=== PATIENT | female | born 1990 | race American Indian/Alaskan Native ===

== ENCOUNTER 2017-10-26 14:13 | Emergency (ER) | payer MEDICAID, OTHER ==
[2017-10-26 14:18] VITALS: BP 113/72
--- NOTE | 2017-10-26 16:20 | Emergency Department Report ---
Blank Doc - Documentation Documentation: Patient is a 27-year-old Female who is presenting with lower abdominal discomfort for the past several days. Patient took a test at home and it was positive. Patient is denying any vaginal bleeding but does have some urinary frequency and vaginal discharge at this time. Patient will receive quant, urinalysis and US
[2017-10-26 16:21] LABS: Bacteria,Urine 1+ /HPF (Negative); Bilirubin,Urine NEG (Negative); Blood,Urine NEG (Negative); Color,Urine Yellow (Yellow); HCG Qualitative,Urine Positive (Negative); Mucus,Urine 1+ /HPF; Protein,Urine <15 mg/dL mg/dL (Negative); Urobilinogen,Urine < 2.0 mg/dL (<2.0)
--- NOTE | 2017-10-26 17:02 | Emergency Department Report ---
ED Abdominal Pain HPI - General Chief Complaint: Abdominal Pain Stated Complaint: /CRAMPING Time Seen by Provider: 10/26/17 15:46 Source: patient Mode of arrival: Ambulatory Limitations: No Limitations - History of Present Illness Initial Comments: Patient is a 27-year-old Female who is presenting with lower abdominal discomfort for the past several days. Patient took a test at home and it was positive. Patient is denying any vaginal bleeding but does have some urinary frequency and vaginal discharge at this time. Patient will receive quant, urinalysis and US - Related Data Previous Rx's Medication Instructions Recorded Last Taken Type Acetaminophen/Codeine [Tylenol #3] 1 tab PO Q6H PRN #20 tab 09/20/15 Unknown Rx Allergies Allergy/AdvReac Type Severity Reaction Status Date / Time No Known Allergies Allergy Unverified 09/19/15 20:58 ED Review of Systems ROS: Stated complaint: /CRAMPING Other details as noted in HPI ED Past Medical Hx - Past Medical History Previous Medical History?: Yes Additional medical history: Miscarriage - Surgical History Past Surgical History?: No - Social History Smoking Status: Never Smoker Substance Use Type: Alcohol, Non Opiate Pain - Medications Home Medications: Home Medications Medication Instructions Recorded Confirmed Last Taken Type Acetaminophen/Codeine [Tylenol #3] 1 tab PO Q6H PRN #20 tab 09/20/15 Unknown Rx ED Physical Exam - General Limitations: No Limitations ED Course Vital Signs 10/26/17 14:14 Temperature 98.7 F Pulse Rate 86 Respiratory 18 Rate Blood Pressure 113/72 O2 Sat by Pulse 98 Oximetry ED Medical Decision Making - Lab Data Result diagrams: 10/26/17 17:16 Critical care attestation.: If time is entered above; I have spent that time in minutes in the direct care of this critically ill patient, excluding procedure time. ED Disposition Condition: Stable Instructions: Abdominal Pain (ED) Referrals: PRIMARY CARE, [Primary Care Provider] - 3-5 Days
[2017-10-26 17:28] LABS: Basophils % (Auto) 0.4 % (0.0-1.8); Eosinophils # (Auto) 0.1 K/mm3 (0.0-0.4); Eosinophils % (Auto) 0.8 % (0.0-4.3); Hematocrit 39.4 % (30.3-42.9); Lymphocytes # (Auto) 2.6 K/mm3 (1.2-5.4); Lymphocytes % (Auto) 29.5 % (13.4-35.0); Mean Corpuscular HGB Conc 33 % (30-34); Mean Corpuscular Hemoglobin 29 pg (28-32); Mean Corpuscular Volume 88 fl (79-97); Monocytes # (Auto) 0.6 K/mm3 (0.0-0.8); Monocytes % (Auto) 6.6 % (0.0-7.3); Platelet Count 275 K/mm3 (140-440); Red Blood Count 4.45 M/mm3 (3.65-5.03); Red Cell Distribution Width 14.9 % (13.2-15.2)
--- NOTE | 2017-10-26 18:59 | Emergency Department Report ---
Chief Complaint: Abdominal Pain Stated Complaint: /CRAMPING Time Seen by Provider: 10/26/17 15:46 - HPI History of Present Illness: Patient is a 27-year-old Female who is presenting with lower abdominal discomfort for the past several days. Patient took a test at home and it was positive. Patient is denying any vaginal bleeding but does have some urinary frequency , burning or urgency but she reports that she is having vaginal discharge. Patient said that she has been 41 child and combination of and miscarriage 2. She doesn't know how far along she is better last menstrual cycle was 08/28/2017. She said the vaginal discharge does not have older. Pain is 4-10 located the pelvic area cramping on and off no medication use .patient reports that she has an [facility] visit next week - ROS Review of Systems: All systems are negative unless stated in HPI above - Exam Vital Signs: Vital Signs 10/26/17 14:14 Temperature 98.7 F Pulse Rate 86 Respiratory 18 Rate Blood Pressure 113/72 O2 Sat by Pulse 98 Oximetry Physical Exam: This is a 27-year-old female well-nourished with follow-up in no acute distress. Abdomen: Tenderness to pelvic area without any guarding or rebound tenderness. No CVA tenderness MSE screening note: Focused history and physical exam performed. Due to findings the following was ordered: ED Medical Decision Making - Lab Data Result diagrams: 10/26/17 17:16 Lab Results 10/26/17 10/26/17 10/26/17 Range/Units 15:55 16:33 17:16 WBC 8.8 (4.5-11.0) K/mm3 RBC 4.45 (3.65-5.03) M/mm3 Hgb 13.0 (10.1-14.3) gm/dl Hct 39.4 (30.3-42.9) % MCV 88 (79-97) fl MCH 29 (28-32) pg MCHC 33 (30-34) % RDW 14.9 (13.2-15.2) % Plt Count 275 (140-440) K/mm3 Lymph % (Auto) 29.5 (13.4-35.0) % [place] % (Auto) 6.6 (0.0-7.3) % Eos % (Auto) 0.8 (0.0-4.3) % Baso % (Auto) 0.4 (0.0-1.8) % Lymph # 2.6 (1.2-5.4) K/mm3 [place] # 0.6 (0.0-0.8) K/mm3 Eos # 0.1 (0.0-0.4) K/mm3 Baso # 0.0 (0.0-0.1) K/mm3 Seg Neutrophils % 62.7 (40.0-70.0) % Seg Neutrophils # 5.5 (1.8-7.7) K/mm3 HCG, Quant 900937 H (0-4) mIU/mL Urine Color Yellow (Yellow) Urine Turbidity Clear (Clear) Urine pH 5.0 (5.0-7.0) Ur Specific Allen 1.021 (1.003-1.030) Urine Protein <15 mg/dl (Negative) mg/dL Urine Glucose (UA) Neg (Negative) mg/dL Urine Ketones Neg (Negative) mg/dL Urine Blood Neg (Negative) Urine Nitrite Neg (Negative) Ur Reducing Substances Not Reportable Urine Bilirubin Neg (Negative) Urine Ictotest Not Reportable Urine Urobilinogen < 2.0 (<2.0) mg/dL Ur Leukocyte Esterase Lg (Negative) Urine WBC (Auto) 11.0 H (0.0-6.0) /HPF Urine RBC (Auto) 10.0 (0.0-6.0) /HPF U Epithel Cells (Auto) 5.0 (0-13.0) /HPF Urine Bacteria (Auto) 1+ (Negative) /HPF Urine Mucus 1+ /HPF Urine HCG, Qual Positive A (Negative) Urine culture pending - Medical Decision Making MDM. Patient strained. Positive UTI, positive . Ultrasound pending. Patient with vaginal discharge and to have STD to include wet prep checked. CBC done. Rocephin. ED Disposition for MSE Condition: Stable Instructions: Abdominal Pain (ED) Referrals: PRIMARY CARE, [Primary Care Provider] - 3-5 Days
--- NOTE | 2017-10-26 19:27 | Emergency Department Report ---
ED Female HPI - General Chief complaint: Abdominal Pain Stated complaint: /CRAMPING Time Seen by Provider: 10/26/17 15:46 Source: patient Mode of arrival: Ambulatory Limitations: No Limitations - History of Present Illness Initial comments: 27-year-old female past medical history presents with complaint of concern for and vaginal discharge. Patient is awake alert and oriented 3. States she has taken home tests which were positive. Complaining of crampy suprapubic discomfort and thick white vaginal discharge. Denies any current vaginal bleeding. States the discharge started 3 days ago. It increased urinary frequency reported by patient noticed dysuria. Denies fevers chills nausea or vomiting. MD Complaint: pelvic pain Onset/Timin -: days(s) Location: suprapubic Severity: mild Quality: burning Consistency: intermittent Improves with: none Worsens with: none Are you Now?: Yes Last Menstrual Period: 08/28/17 EDC: 06/04/18 Associated Symptoms: vaginal discharge - Related Data Sexually active: Yes : 4 Para: 1 A: 2 Previous Rx's Medication Instructions Recorded Last Taken Type Acetaminophen/Codeine [Tylenol #3] 1 tab PO Q6H PRN #20 tab 09/20/15 Unknown Rx Nitrofurantoin Monohyd/M-Cryst 100 mg PO BID #14 capsule 10/26/17 Unknown Rx [Macrobid 100 mg Capsule] Vit No.129/Iron/Folic 1 each PO QDAY #30 tablet 10/26/17 Unknown Rx [ Tablet] metroNIDAZOLE [Metronidazole] 375 mg PO BID #14 capsule 10/26/17 Unknown Rx Allergies Allergy/AdvReac Type Severity Reaction Status Date / Time No Known Allergies Allergy Unverified 09/19/15 20:58 ED Review of Systems ROS: Stated complaint: /CRAMPING Other details as noted in HPI Constitutional: denies: chills, fever Eyes: denies: eye pain, eye discharge, vision change ENT: denies: ear pain, throat pain Respiratory: denies: cough, shortness of breath, wheezing Cardiovascular: denies: chest pain, palpitations Endocrine: no symptoms reported Gastrointestinal: denies: abdominal pain, nausea, diarrhea Genitourinary: denies: urgency, dysuria, discharge Musculoskeletal: denies: back pain, joint swelling, arthralgia Skin: denies: rash, lesions Neurological: denies: headache, weakness, paresthesias Psychiatric: denies: anxiety, depression Hematological/Lymphatic: denies: easy bleeding, easy bruising ED Past Medical Hx - Past Medical History Previous Medical History?: Yes Additional medical history: Miscarriage - Surgical History Past Surgical History?: No - Social History Smoking Status: Never Smoker Substance Use Type: Alcohol, Non Opiate Pain - Medications Home Medications: Home Medications Medication Instructions Recorded Confirmed Last Taken Type Acetaminophen/Codeine [Tylenol #3] 1 tab PO Q6H PRN #20 tab 09/20/15 Unknown Rx Nitrofurantoin Monohyd/M-Cryst 100 mg PO BID #14 capsule 10/26/17 Unknown Rx [Macrobid 100 mg Capsule] Vit No.129/Iron/Folic 1 each PO QDAY #30 tablet 10/26/17 Unknown Rx [ Tablet] metroNIDAZOLE [Metronidazole] 375 mg PO BID #14 capsule 10/26/17 Unknown Rx ED Physical Exam - General Limitations: No Limitations General appearance: alert, in no apparent distress - Head Head exam: Present: atraumatic, normocephalic - Eye Eye exam: Present: normal appearance, PERRL, EOMI - ENT ENT exam: Present: mucous membranes moist - Neck Neck exam: Present: normal inspection - Respiratory Respiratory exam: Present: normal lung sounds bilaterally. Absent: respiratory distress - Cardiovascular Cardiovascular Exam: Present: regular rate, normal rhythm. Absent: systolic murmur, diastolic murmur, rubs, gallop - GI/Abdominal GI/Abdominal exam: Present: tenderness (positive suprapubic tenderness), normal bowel sounds - External exam: Present: normal external exam Speculum exam: Present: vaginal discharge (white vaginal discharge) Bi-manual exam: Present: normal bi-manual exam (no cervical motion tenderness or adnexal tenderness on pelvic exam) - Extremities Exam Extremities exam: Present: normal inspection - Back Exam Back exam: Present: normal inspection - Neurological Exam Neurological exam: Present: alert, oriented X3, CN II-XII intact, normal gait - Psychiatric Psychiatric exam: Present: normal affect, normal mood - Skin Skin exam: Present: warm, dry, intact, normal color. Absent: rash ED Course Vital Signs 10/26/17 14:14 Temperature 98.7 F Pulse Rate 86 Respiratory 18 Rate Blood Pressure 113/72 O2 Sat by Pulse 98 Oximetry ED Medical Decision Making - Lab Data Result diagrams: 10/26/17 17:16 - Medical Decision Making A/P: , vaginal discharge 1-chlamydia/gonorrhea cultures sent. Wet prep shows trichomonas we'll treat empirically with metronidazole 2-urine culture sent. Will treat empirically with Macrobid for UTI as patient has large leukocyte esterase 3-ultrasound shows single live intrauterine at 10 weeks gestation 4- follow-up with [facility] Critical care attestation.: If time is entered above; I have spent that time in minutes in the direct care of this critically ill patient, excluding procedure time. ED Disposition Clinical Impression: Trichomonal vaginitis Qualifiers: Weeks of gestation: 10 weeks Qualified Code(s): Z3A.10 - 10 weeks gestation of Urinary tract infection Qualifiers: Urinary tract infection type: acute cystitis Hematuria presence: without hematuria Qualified Code(s): N30.00 - Acute cystitis without hematuria Disposition: - TO HOME OR SELFCARE Is pt being admited?: No Does the pt Need Aspirin: No Condition: Stable Instructions: Trichomoniasis (ED), Threatened Miscarriage (ED), (ED) , Urinary Tract Infection in Women (ED) Prescriptions: metroNIDAZOLE [Metronidazole] 375 mg PO BID #14 capsule Nitrofurantoin Monohyd/M-Cryst [Macrobid 100 mg Capsule] 100 mg PO BID #14 capsule Vit No.129/Iron/Folic [ Tablet] 1 each PO QDAY #30 tablet Referrals: [facility] [Provider Group] - 3-5 Days [facility] [Provider Group] - 3-5 Days Forms: Accompanied Note, Work/School Release Form(ED) Time of Disposition: 20:19
--- NOTE | 2017-10-26 19:28 | Ultrasound Report ---
FINAL REPORT EXAM: US OB TRANSVAGINAL HISTORY: preg with pain, ukn gest age TECHNIQUE: Ultrasound obstetrical transabdominal and transvaginal PRIORS: None. FINDINGS: There is a gestational sac within the uterus. A yolk sac is identified There is a pole present measuring 3.1 centimeters corresponding to an estimated gestational age of 10 weeks 0 days with estimated date of delivery May 24, 2018 cardiac activity present with heart rate 171 beats per minute The right ovary measures 2.6 x 1.9 x 1.9 centimeters The left ovary measures 3.5 x 2.5 x 3.3 centimeters. There is a 2 centimeter mildly complex left ovarian cyst probable corpus luteum No free-fluid is seen within the cul-de-sac IMPRESSION: Single live intrauterine gestation estimated at 10 weeks 0 days 2 centimeter left ovarian cyst
--- NOTE | 2017-10-26 19:28 | Ultrasound Report ---
FINAL REPORT EXAM: US OB < = 14 WEEKS FETUS HISTORY: preg with pain, ukn gest age TECHNIQUE: Ultrasound obstetrical transabdominal PRIORS: None. FINDINGS: There is a gestational sac within the uterus. A yolk sac is identified There is a pole present measuring 3.1 centimeters corresponding to an estimated gestational age of 10 weeks 0 days with estimated date of delivery May 24, 2018 cardiac activity present with heart rate 171 beats per minute The right ovary measures 2.6 x 1.9 x 1.9 centimeters The left ovary measures 3.5 x 2.5 x 3.3 centimeters. There is a 2 centimeter mildly complex left ovarian cyst probable corpus luteum No free-fluid is seen within the cul-de-sac IMPRESSION: Single live intrauterine gestation estimated at 10 weeks 0 days 2 centimeter left ovarian cyst
== END 2017-10-26 20:28 | disposition home or self-care (01) ==
LOC: ED 14:13
DX: O98.311 Other infections with a predominantly sexual mode of transmission complicating pregnancy, first trimester (principal); A59.01 Trichomonal vulvovaginitis; O23.11 Infections of bladder in pregnancy, first trimester; Z3A.10 10 weeks gestation of pregnancy
CPT/HCPCS: 36415; 76801; 76817; 81001; 81025; 84702; 85025; 87086; 87210; 87591

== ENCOUNTER 2018-02-05 12:48 | Outpatient (CLI) | payer OTHER ==
[2018-02-05 13:25] VITALS: BP 104/60
[2018-02-05] MEDS: LACTATED RINGERS 500 ML IV ONE (13:38)
== END 2018-02-05 14:28 | disposition home or self-care (01) ==
LOC: TRG 12:48
PROVIDERS: ATTEND Obstetrics & Gynecology
DX: O26.892 Other specified pregnancy related conditions, second trimester (principal); R06.02 Shortness of breath; Z3A.24 24 weeks gestation of pregnancy
CPT/HCPCS: 59025; J7120

== ENCOUNTER 2018-03-06 17:14 | Outpatient (CLI) | payer OTHER ==
[2018-03-06 17:32] VITALS: BP 109/65
[2018-03-06 18:13] LABS: Bacteria,Urine 1+ /HPF (Negative); Bilirubin,Urine NEG (Negative); Blood,Urine NEG (Negative); Color,Urine Colorless (Yellow); Protein,Urine <15 mg/dL mg/dL (Negative); Urobilinogen,Urine < 2.0 mg/dL (<2.0)
--- NOTE | 2018-03-06 19:14 | Ultrasound Report ---
FINAL REPORT PROCEDURE: US OB LIMITED TECHNIQUE: Real-time limited sonographic examination was performed for evaluation of amniotic fluid index for each fetus with image documentation (1 or more fetuses). CPT 90749 HISTORY: leaking fluid COMPARISON: No prior studies are available for comparison. FINDINGS: There is a single living intrauterine gestation currently in the vertex presentation with heart rate of 165 beats per minute. Subjectively the amount of amniotic fluid appears normal. Normal amniotic fluid index measured at 14.7 centimeters. Anterior placenta is visualized. The visualized portion show no evidence of abruption. The internal cervical os is not visualized. IMPRESSION: Single living intrauterine gestation currently visualize vertex presentation. Subjectively and by amniotic fluid index the amount of amniotic fluid appears normal. Further evaluation was neither requested nor performed.
== END 2018-03-06 19:25 | disposition home or self-care (01) ==
LOC: TRG 17:14
PROVIDERS: ATTEND Obstetrics & Gynecology
DX: O47.03 False labor before 37 completed weeks of gestation, third trimester (principal); Z3A.28 28 weeks gestation of pregnancy
CPT/HCPCS: 59025; 76815; 81001

== ENCOUNTER 2018-05-08 02:01 | Outpatient (CLI) | payer OTHER ==
[2018-05-08 02:30] VITALS: BP 114/68
[2018-05-08] MEDS ORDERED: LACTATED RINGERS 1,000 ML ONE (03:42)
[2018-05-08] MEDS ORDERED: LACTATED RINGERS 1,000 ML IV ONE (03:49)
--- NOTE | 2018-05-08 05:19 | Ultrasound Report ---
FINAL REPORT PROCEDURE: US OB LIMITED TECHNIQUE: Real-time limited sonographic examination was performed for evaluation of size, position, heartbeat, fluid volume for each fetus with image documentation (1 or more fetuses). CPT 21451 HISTORY: wellbeing COMPARISON: No prior studies are available for comparison. FINDINGS: Fetus is in a cephalic presentation. Heart rate is 138 beats per minute. Amniotic fluid index is 10.3 centimeters which is within normal limits. Placenta is fundal and grade 2. There is no previa or abruption. IMPRESSION: Amniotic fluid index is 10.3 centimeters.
--- NOTE | 2018-05-08 05:21 | Ultrasound Report ---
FINAL REPORT PROCEDURE: US OB BPP WO NON-STRESS TECHNIQUE: Real-time limited sonographic examination was performed for evaluation of size, position, heartbeat, fluid volume for each fetus with image documentation (1 or more fetuses). CPT 52866 HISTORY: wellbeing COMPARISON: No prior studies are available for comparison. FINDINGS: Biophysical profile: breathing movements: 2. movements: 2. Posterior and tone: 2. Amniotic fluid volume: 2. Total score: 8/8. IMPRESSION: Normal biophysical profile.
== END 2018-05-08 05:30 | disposition home or self-care (01) ==
LOC: TRG 02:01
PROVIDERS: ATTEND Obstetrics & Gynecology
DX: O47.1 False labor at or after 37 completed weeks of gestation (principal); Z3A.38 38 weeks gestation of pregnancy
CPT/HCPCS: 59025; 76815; 76819; 96360; J7120

== ENCOUNTER 2018-12-11 09:53 | Emergency (ER) | payer OTHER ==
[2018-12-11 10:02] VITALS: BP 117/78
--- NOTE | 2018-12-11 11:51 | Emergency Department Report ---
ED Female HPI - General Chief complaint: Urogenital-Female Stated complaint: PELVIC PAIN Time Seen by Provider: 12/11/18 11:09 Source: patient Mode of arrival: Ambulatory Limitations: No Limitations - History of Present Illness Initial comments: This is a 28-year-old female nontoxic, well nourished in appearance, no acute signs of distress presents to the ED with c/o of bilateral breast tenderness and missed menstrual cycle. Patient stated she wants to get a test. Patient stated that her last menstrual cycle was last month. Patient stated that she only had her motorcycle for about 3 days which is not normal. Patient agrees that she taken his test that was negative at al. Patient denies any abdominal pain, pelvic pain, chest pain, shortness of breath, headache or stiff neck, numbness, tingling. Patient otherwise denies any other symptoms. Patient denies any allergies to significant past medical history. MD Complaint: other (breast tenderness) Severity scale (0 -10): 0 Improves with: none Worsens with: none Associated Symptoms: denies: vaginal discharge, vaginal bleeding, abdominal pain, nausea/vomiting, fever/chills, headaches, loss of appetite, dysuria, hematuria, rash, seizure, shortness of breath, syncope, weakness - Related Data Previous Rx's Medication Instructions Recorded Last Taken Type Vit No.129/Iron/Folic 1 each PO QDAY #30 tablet 10/26/17 05/26/18 Rx [ Tablet] Ferrous Sulfate [Feosol 325 MG tab] 325 mg PO BID #60 tablet 05/29/18 Unknown Rx Ibuprofen [Motrin 800 MG tab] 800 mg PO Q6H PRN #30 tablet 05/29/18 Unknown Rx 21/Iron Fu/Folic Acid 1 each PO DAILY #30 tablet 12/11/18 Unknown Rx [ Complete Caplet] Allergies Allergy/AdvReac Type Severity Reaction Status Date / Time No Known Allergies Allergy Verified 02/05/18 13:24 ED Review of Systems ROS: Stated complaint: PELVIC PAIN Other details as noted in HPI Constitutional: denies: chills, fever Eyes: denies: eye pain, eye discharge, vision change ENT: denies: ear pain, throat pain Respiratory: denies: cough, shortness of breath, wheezing Cardiovascular: denies: chest pain, palpitations Endocrine: no symptoms reported Gastrointestinal: denies: abdominal pain, nausea, diarrhea Genitourinary: denies: urgency, dysuria, discharge Musculoskeletal: denies: back pain, joint swelling, arthralgia Skin: denies: rash, lesions Neurological: denies: headache, weakness, paresthesias Psychiatric: denies: anxiety, depression Hematological/Lymphatic: denies: easy bleeding, easy bruising ED Past Medical Hx - Past Medical History Previous Medical History?: No Hx Hypertension: No Hx Congestive Heart Failure: No Hx Diabetes: No Hx Deep Vein Thrombosis: No Hx Renal Disease: No Hx Sickle Cell Disease: No Hx Seizures: No Hx Asthma: No Hx COPD: No Hx HIV: No Additional medical history: Miscarriage - Surgical History Past Surgical History?: No - Social History Smoking Status: Never Smoker Substance Use Type: None - Medications Home Medications: Home Medications Medication Instructions Recorded Confirmed Last Taken Type Vit No.129/Iron/Folic 1 each PO QDAY #30 tablet 10/26/17 05/27/18 05/26/18 Rx [ Tablet] Ferrous Sulfate [Feosol 325 MG tab] 325 mg PO BID #60 tablet 05/29/18 Unknown Rx Ibuprofen [Motrin 800 MG tab] 800 mg PO Q6H PRN #30 tablet 05/29/18 Unknown Rx 21/Iron Fu/Folic Acid 1 each PO DAILY #30 tablet 12/11/18 Unknown Rx [ Complete Caplet] ED Physical Exam - General Limitations: No Limitations General appearance: alert, in no apparent distress - Head Head exam: Present: atraumatic, normocephalic - Eye Eye exam: Present: normal appearance - Neck Neck exam: Present: normal inspection, full ROM - GI/Abdominal GI/Abdominal exam: Present: soft, normal bowel sounds. Absent: distended, tenderness, guarding, rebound, rigid, diminished bowel sounds - Extremities Exam Extremities exam: Present: normal inspection, full ROM - Back Exam Back exam: Present: normal inspection, full ROM. Absent: tenderness, CVA tenderness (R), CVA tenderness (L), muscle spasm, paraspinal tenderness, vertebral tenderness, rash noted - Neurological Exam Neurological exam: Present: alert, oriented X3, normal gait - Psychiatric Psychiatric exam: Present: normal affect, normal mood - Skin Skin exam: Present: warm, dry, intact, normal color. Absent: rash ED Course Vital Signs 12/11/18 09:59 Temperature 98.2 F Pulse Rate 103 H Respiratory 16 Rate Blood Pressure 117/78 O2 Sat by Pulse 100 Oximetry - Reevaluation(s) Reevaluation #1: 12/11/18 11:49 Patient is speaking in full sentences with no signs of distress noted. ED Medical Decision Making - Medical Decision Making This is a 28-year-old female presents with a positive test. Patient is stable and was examined by me. She was instructed that she was able to take test from a store which is similar to what we do here. Patient stated that she did know but is requested that we continue the procedure. Patient does have a insurance but patient was instructed that she may be billed for still seeing a provider which she stated to continue with the treatment plan. Urine obtained. Test was negative. Patient was notified of the results. Patient was instructed to Follow-up with a primary care doctor in 3-5 days or if symptoms worsen and continue return to emergency room as soon as possible. At time of discharge, the patient does not seem toxic or ill in appearance. No acute signs of distress noted. Patient agrees to discharge treatment plan of care. No further questions noted by the patient. Critical care attestation.: If time is entered above; I have spent that time in minutes in the direct care of this critically ill patient, excluding procedure time. ED Disposition Clinical Impression: Positive test Disposition: [id number]-01 TO HOME OR SELFCARE Is pt being admited?: No Does the pt Need Aspirin: No Condition: Stable Instructions: (ED) Additional Instructions: Follow-up with a [facility] doctor in 3-5 days or if symptoms worsen and continue return to emergency room as soon as possible. Prescriptions: 21/Iron Fu/Folic Acid [ Complete Caplet] 1 each PO DAILY #30 tablet Referrals: [facility] [Primary Care Provider] - 3-5 Days REE GRAY MD [Staff Physician] - 3-5 Days [facility] [[facility]] - 3-5 Days Forms: Work/School Release Form(ED)
[2018-12-11 12:02] LABS: Bacteria,Urine 1+ /HPF (Negative); Bilirubin,Urine NEG (Negative); Blood,Urine NEG (Negative); Color,Urine Straw (Yellow); Mucus,Urine FEW /HPF; Protein,Urine <15 mg/dL mg/dL (Negative); Urobilinogen,Urine < 2.0 mg/dL (<2.0)
[2018-12-11 12:13] LABS: HCG Qualitative,Urine Positive (Negative)
== END 2018-12-11 13:06 | disposition home or self-care (01) ==
LOC: ED 09:53
DX: Z32.01 Encounter for pregnancy test, result positive (principal); N63.10 Unspecified lump in the right breast, unspecified quadrant; N63.20 Unspecified lump in the left breast, unspecified quadrant
CPT/HCPCS: 81001; 81025; 99283